=== PATIENT | female | born 1935 | race African-American/Black ===

== ENCOUNTER 2018-09-20 14:28 | Emergency (ER) | payer MEDICARE, MEDICAID ==
[~2018-09-20] VITALS: Ht 170.2 cm; Wt 68.0 kg
[2018-09-20] MEDS ORDERED: KETOROLAC 30MG/ML VIAL IM ONE (15:15)
[2018-09-20] MEDS ORDERED: MORPHINE SULFATE 10 MG/ML CPJ IM ONE (15:15)
[2018-09-20 20:03] VITALS: BP 128/73
== END 2018-09-20 20:03 | disposition home or self-care (01) ==
LOC: ER 15:31
DX: M54.5 Low back pain (principal); G89.29 Other chronic pain
CPT/HCPCS: 72131; 96372; 99284; J1885; J2270

== ENCOUNTER 2021-02-17 16:49 | Inpatient (IN) | payer MEDICARE, MEDICAID ==
[~2021-02-17] VITALS: Ht 165.1 cm; Wt 61.3 kg
[~2021-02-17 16:49] MED LIST: ATOR20TA PO; CHOL100044 GT; CHOL100062 PO; HYDR2TAB7 PO; LATA2.5D14 OP; MAGN250T10 PO
[2021-02-17] MEDS ORDERED: ASPIRIN 81MG TABLET PO ONE (17:15)
[2021-02-17 17:20] LABS: BASOPHILS % 0.6 % (0.0-2.0); EOSINOPHILS % 0.8 % (0.0-5.0); HEMATOCRIT. 40.6 % (36.0-48.0); HEMOGLOBIN. 13.8 g/dL (12.0-16.0); LYMPHOCYTES % 60.3 % (20.0-50.0); MEAN CORPUSCULAR HEMOGLOBIN 31.2 pg (28.0-32.0); MEAN CORPUSCULAR VOLUME 91.9 fL (81.0-99.0); MEAN PLATELET VOLUME 8.3 fl (7.4-10.4); MONOCYTES % 9.6 % (2.0-8.0); NEUTROPHILS % 28.7 % (40.0-76.0); PLATELET 148 x1000/uL (130-400); RED BLOOD CELL COUNT 4.41 mill/uL (4.2-5.4); RED CELL DISTRIBUTION WIDTH 14.6 % (11.6-14.6)
[2021-02-17 17:25] LABS: CHLORIDE 106 mEq/L (98-107)
[2021-02-17] MEDS ORDERED: MAGNESIUM/ALUMINUM HYDROXIDE/SIMETHICONE 30ML UDC PO PRN (20:00)
[2021-02-17] MEDS ORDERED: CLONIDINE 0.1MG TABLET PO PRN (20:00)
[2021-02-17] MEDS ORDERED: ENOXAPARIN 40MG/0.4ML SYR SUBCUT SCH (20:00)
[2021-02-17] MEDS ORDERED: ONDANSETRON HCL 4MG/2ML INJ IV PRN (20:00)
[2021-02-17] MEDS ORDERED: GUAIFENESIN 200MG/10ML SUGAR FREE UDC PO PRN (20:00)
[2021-02-17] MEDS ORDERED: ACETAMINOPHEN 325MG TABLET PO PRN (20:00)
[2021-02-17] MEDS ORDERED: TRAMADOL 50MG TABLET PO PRN (20:30)
[2021-02-17] MEDS ORDERED: NITROGLYCERIN 0.4MG TABLET SL SL PRN (20:30)
[2021-02-17] MEDS ORDERED: ZOLPIDEM TARTRATE 5MG TABLET PO PRN (20:30)
[2021-02-17 20:43] LABS: T4 FREE 0.89 ng/dL (0.76-1.46)
[2021-02-17 20:54] LABS: FOLIC ACID (FOLATE) SERUM 15.3 ng/mL (>5.38)
[2021-02-17 21:00] LABS: *AMPHETAMINES SCREEN URINE NEGATIVE (NEGATIVE); *BARBITURATES SCREEN URINE NEGATIVE (NEGATIVE); *BENZODIAZEPINES SCREEN URINE NEGATIVE (NEGATIVE); *COCAINE SCREEN URINE NEGATIVE (NEGATIVE); METHADONE URINE SCREEN NEGATIVE (NEGATIVE)
[2021-02-17] MEDS ORDERED: FAMOTIDINE 20MG TABLET PO SCH (21:00)
[2021-02-17 21:01] LABS: CANNABINOID URINE SCREEN NEGATIVE (NEGATIVE); OPIATES URINE SCREEN PRESUMTIVE POSITIVE (NEGATIVE); PHENCYCLIDINE URINE SCREEN NEGATIVE (NEGATIVE)
[2021-02-17] MEDS: ENOXAPARIN 30MG/0.3ML SYR SUBCUT SCH (21:06)
[2021-02-17] MEDS: METOPROLOL TARTRATE 25MG TABLET PO SCH (21:07)
[2021-02-17] MEDS: LISINOPRIL 20MG TABLET PO SCH (21:07)
[2021-02-17] MEDS: FAMOTIDINE 20MG TABLET PO SCH (21:07)
[2021-02-17] MEDS: ASCORBIC ACID 500 MG TABLET PO SCH (21:07)
[2021-02-17 22:30] VITALS: BP 160/90
[2021-02-17] MEDS ORDERED: LISI20TA31 MT (23:34)
[2021-02-18] VITALS: BP 160/70
[2021-02-18 01:03] LABS: CREATINE KINASE 362 IU/L (26-192)
[2021-02-18 01:04] LABS: CREATINE KINASE MB FRACTION 3.2 ng/mL (0.5-3.6)
[2021-02-18 06:25] LABS: BASOPHILS % 0.9 % (0.0-2.0); EOSINOPHILS % 1.3 % (0.0-5.0); HEMOGLOBIN. 11.9 g/dL (12.0-16.0); MEAN CORPUSCULAR HEMOGLOBIN 30.6 pg (28.0-32.0); MEAN CORPUSCULAR VOLUME 92.5 fL (81.0-99.0); MONOCYTES % 12.6 % (2.0-8.0); NEUTROPHILS % 39.2 % (40.0-76.0); PLATELET 129 x1000/uL (130-400); RED BLOOD CELL COUNT 3.89 mill/uL (4.2-5.4); RED CELL DISTRIBUTION WIDTH 14.7 % (11.6-14.6)
[2021-02-18 06:40] LABS: CHLORIDE 113 mEq/L (98-107)
[2021-02-18 06:47] LABS: PHOSPHORUS 2.9 mg/dL (2.5-4.9)
[2021-02-18 06:49] LABS: CREATINE KINASE 282 IU/L (26-192)
[2021-02-18 06:56] LABS: CREATINE KINASE MB FRACTION 2.8 ng/mL (0.5-3.6)
[2021-02-18 08:39] VITALS: BP 152/76
[2021-02-18] MEDS: METOPROLOL TARTRATE 25MG TABLET PO SCH ×2 (09:00→22:25)
[2021-02-18] MEDS: ASPIRIN 325MG EC TABLET PO SCH (09:20)
[2021-02-18] MEDS: ZINC SULFATE 220 MG ( 50 ) CAPSULE PO SCH (09:20)
[2021-02-18] MEDS: CHOLECALCIFEROL (D3) 1000 UNIT TABLET PO SCH (09:20)
[2021-02-18] MEDS: LISINOPRIL 20MG TABLET PO SCH ×2 (09:21→22:27)
[2021-02-18] MEDS: ASCORBIC ACID 500 MG TABLET PO SCH ×2 (10:49→22:27)
[2021-02-18 12:06] VITALS: BP 157/82
[2021-02-18 16:38] VITALS: BP 149/80
[2021-02-18 20:00] VITALS: BP 152/61
[2021-02-18] MEDS: ENOXAPARIN 30MG/0.3ML SYR SUBCUT SCH (22:26)
[2021-02-18] MEDS: FAMOTIDINE 20MG TABLET PO SCH (22:26)
[2021-02-19 00:32] VITALS: BP 151/66
[2021-02-19] MEDS: ACETAMINOPHEN 325MG TABLET PO PRN ×2 (01:51→05:20)
[2021-02-19 04:00] VITALS: BP 156/76
[2021-02-19 08:00] VITALS: BP 141/79
[2021-02-19] MEDS: CHOLECALCIFEROL (D3) 1000 UNIT TABLET PO SCH (08:47)
[2021-02-19] MEDS: ASCORBIC ACID 500 MG TABLET PO SCH ×2 (08:47→21:43)
[2021-02-19] MEDS: ZINC SULFATE 220 MG ( 50 ) CAPSULE PO SCH (08:47)
[2021-02-19] MEDS: METOPROLOL TARTRATE 25MG TABLET PO SCH ×2 (08:47→21:00)
[2021-02-19] MEDS: LISINOPRIL 20MG TABLET PO SCH ×2 (08:47→21:43)
[2021-02-19] MEDS: ASPIRIN 325MG EC TABLET PO SCH (08:47)
[2021-02-19 12:00] VITALS: BP 146/70
[2021-02-19] MEDS: DEXAMETHASONE 4MG/ML 1ML VIAL IV SCH ×2 (12:00→17:33)
[2021-02-19 12:32] LABS: INR 1.1; PROTHROMBIN TIME 11.4 sec (9.6-11.0)
[2021-02-19 16:00] VITALS: BP 151/75
[2021-02-19 20:00] VITALS: BP 162/78
[2021-02-19] MEDS: ENOXAPARIN 30MG/0.3ML SYR SUBCUT SCH (21:42)
[2021-02-19] MEDS: FAMOTIDINE 20MG TABLET PO SCH (21:43)
[2021-02-20] VITALS: BP 128/59
[2021-02-20] MEDS: DEXAMETHASONE 4MG/ML 1ML VIAL IV SCH ×3 (01:44→14:07)
[2021-02-20 04:00] VITALS: BP 135/62
[2021-02-20 08:00] VITALS: BP 140/62
[2021-02-20] MEDS: METOPROLOL TARTRATE 25MG TABLET PO SCH ×2 (09:35→22:16)
[2021-02-20] MEDS: ASCORBIC ACID 500 MG TABLET PO SCH ×2 (09:36→22:15)
[2021-02-20] MEDS: ZINC SULFATE 220 MG ( 50 ) CAPSULE PO SCH (09:36)
[2021-02-20] MEDS: CHOLECALCIFEROL (D3) 1000 UNIT TABLET PO SCH (09:36)
[2021-02-20] MEDS: LISINOPRIL 20MG TABLET PO SCH ×2 (09:37→22:16)
[2021-02-20 12:00] VITALS: BP 137/61
[2021-02-20 16:00] VITALS: BP 142/64
[2021-02-20 20:00] VITALS: BP 139/68
[2021-02-20] MEDS: ENOXAPARIN 30MG/0.3ML SYR SUBCUT SCH (22:15)
[2021-02-20] MEDS: FAMOTIDINE 20MG TABLET PO SCH (22:16)
[2021-02-21] VITALS (7 sets, daily range): BP systolic 134–157; BP diastolic 64–75
[2021-02-21] MEDS: DEXAMETHASONE 4MG/ML 1ML VIAL IV SCH ×3 (00:58→12:50)
[2021-02-21] MEDS: METOPROLOL TARTRATE 25MG TABLET PO SCH ×2 (08:44→21:00)
[2021-02-21] MEDS: ASCORBIC ACID 500 MG TABLET PO SCH ×2 (09:42→23:31)
[2021-02-21] MEDS: LISINOPRIL 20MG TABLET PO SCH ×2 (09:42→23:31)
[2021-02-21] MEDS: CHOLECALCIFEROL (D3) 1000 UNIT TABLET PO SCH (09:42)
[2021-02-21] MEDS: ZINC SULFATE 220 MG ( 50 ) CAPSULE PO SCH (09:54)
[2021-02-21] MEDS: ENOXAPARIN 30MG/0.3ML SYR SUBCUT SCH (22:36)
[2021-02-21] MEDS: FAMOTIDINE 20MG TABLET PO SCH (23:31)
[2021-02-22] VITALS: BP 147/72
[2021-02-22 04:00] VITALS: BP 142/68
[2021-02-22] MEDS: ZINC SULFATE 220 MG ( 50 ) CAPSULE PO SCH (08:30)
[2021-02-22] MEDS: CHOLECALCIFEROL (D3) 1000 UNIT TABLET PO SCH (08:30)
[2021-02-22] MEDS: METOPROLOL TARTRATE 25MG TABLET PO SCH (08:31)
[2021-02-22] MEDS: ASCORBIC ACID 500 MG TABLET PO SCH (08:31)
[2021-02-22] MEDS: LISINOPRIL 20MG TABLET PO SCH (08:31)
[2021-02-22 12:00] VITALS: BP 150/83
[2021-02-22 12:23] VITALS: BP 150/83
== END 2021-02-22 14:30 | disposition home health service (06) | DRG 205 ==
LOC: ER 16:49 → EDBEDREQTM 18:58 → 8WST 19:27 → EDBEDREQTM 19:36 → EDBEDREQ 19:36 → SUPCPDRO 19:52 → ENRESERV 21:24
PROVIDERS: ADMIT Internal Medicine; ATTEND Internal Medicine
DX: M94.0 Chondrocostal junction syndrome [Tietze] (principal); I50.33 Acute on chronic diastolic (congestive) heart failure; G95.89 Other specified diseases of spinal cord; G95.20 Unspecified cord compression; E78.00 Pure hypercholesterolemia, unspecified; I11.0 Hypertensive heart disease with heart failure; M48.02 Spinal stenosis, cervical region; M48.061 Spinal stenosis, lumbar region without neurogenic claudication; Z79.899 Other long term (current) drug therapy; Z88.6 Allergy status to analgesic agent; Z88.0 Allergy status to penicillin
CPT/HCPCS: 36415; 71045; 72141; 72146; 72148; 80053; 80061; 80305; 82550; 82553; 82607; 82746; 83036; 83540; 83550; 83735; 83880; 84100; 84439; 84443; 84484; 85025; 93005; 93306; 93970; 97161; 97166; 99291; C1893; J1100; J1650

== ENCOUNTER 2022-08-09 08:45 | Emergency (ER) | payer MEDICARE, MEDICAID ==
[~2022-08-09] VITALS: Ht 167.6 cm; Wt 77.0 kg
[~2022-08-09 08:45] MED LIST changes: +LISI20TA31 MT
[2022-08-09 11:17] LABS: CLARITY URINE CLEAR (CLEAR); COLOR URINE YELLOW (YELLOW); KETONES URINE NEGATIVE (NEGATIVE); LEUKOCYTE ESTERASE URINE 2+ (NEGATIVE); NITRITE URINE NEGATIVE (NEGATIVE); OCCULT BLOOD URINE NEGATIVE (NEGATIVE); PH URINE 6.5 (4.5-8.0); PROTEIN URINE NEGATIVE (NEGATIVE); SPECIFIC GRAVITY URINE 1.015 (1.005-1.030); UROBILINOGEN URINE 0.2 E.U./dL (0.2-1.0)
[2022-08-09] MEDS ORDERED: TOPUD PO (11:38)
[2022-08-09] MEDS ORDERED: NITR-82 PO (11:38)
[2022-08-09 11:53] VITALS: BP 152/63
== END 2022-08-09 12:16 | disposition home or self-care (01) ==
LOC: ER 08:45
DX: N39.0 Urinary tract infection, site not specified (principal); I10 Essential (primary) hypertension; E78.00 Pure hypercholesterolemia, unspecified
CPT/HCPCS: 81003; 99283

== ENCOUNTER 2024-09-28 05:37 | Emergency (ER) | payer MEDICARE, MEDICAID ==
[~2024-09-28] VITALS: Ht 162.6 cm; Wt 55.0 kg
[~2024-09-28 05:37] MED LIST changes: +NITR-82 PO; +TOPUD PO
[2024-09-28 05:42] VITALS: O2SAT 98
[2024-09-28 06:17] LABS: BASOPHILS % 0.6 % (0.0-2.0); EOSINOPHILS % 0.8 % (0.0-5.0); HEMATOCRIT. 39.5 % (36.0-48.0); HEMOGLOBIN. 13.2 g/dL (12.0-16.0); LYMPHOCYTES % 42.2 % (20.0-50.0); MEAN CORPUSCULAR HEMOGLOBIN 31.6 pg (28.0-32.0); MEAN CORPUSCULAR HGB CONC 33.5 g/dL (31.0-37.0); MEAN CORPUSCULAR VOLUME 94.5 fL (81.0-99.0); MEAN PLATELET VOLUME 8.4 fl (7.4-10.4); MONOCYTES % 10.5 % (2.0-8.0); NEUTROPHILS % 45.9 % (40.0-76.0); PLATELET 172 x1000/uL (130-400); RED BLOOD CELL COUNT 4.18 mill/uL (4.2-5.4); RED CELL DISTRIBUTION WIDTH 15.2 % (11.6-14.6); WHITE BLOOD COUNT 3.4 x1000/uL (4.5-11.0)
[2024-09-28 06:19] LABS: CHLORIDE 104 mEq/L (98-107); POTASSIUM 4.1 mEq/L (3.5-5.1); SODIUM 139 mEq/L (136-145)
[2024-09-28 06:20] LABS: CARBON DIOXIDE 28 mEq/L (21-32)
[2024-09-28 06:21] LABS: CALCIUM 9.8 mg/dL (8.7-10.4)
[2024-09-28 06:25] LABS: CREATININE 0.8 mg/dL (0.6-1.0); GLUCOSE 111 mg/dL (70-105); UREA NITROGEN BLOOD 10 mg/dL (9-23)
[2024-09-28 06:28] LABS: TROPONIN I HIGH SENSITIVITY 10 ng/L (3.0-34)
[2024-09-28] MEDS ORDERED: LISINOPRIL 20MG TABLET PO ONE (09:30)
[2024-09-28] MEDS: LISINOPRIL 10MG TABLET PO NR (10:34)
[2024-09-28 10:35] VITALS: TEMP 36.72516
[2024-09-28 10:58] VITALS: BP 176/82; PULSE 72; RESP 16; O2SAT 100
[2024-09-28] MEDS ORDERED: ACETAMINOPHEN 325MG TABLET PO PRN (19:15)
[2024-09-28] MEDS ORDERED: MORPHINE SULFATE 2 MG/ML INJ (NOT FOR IM USE) IV PRN (19:15)
[2024-09-28] MEDS ORDERED: HYDROCODONE/ACETAMINOPHEN 5/325MG TABLET PO PRN (19:15)
[2024-09-28] MEDS ORDERED: ONDANSETRON HCL 4MG/2ML INJ IV PRN (19:15)
[2024-09-28] MEDS ORDERED: IPRATROPIUM/ALBUTEROL 0.5-3(2.5)MG/3ML NEB NEB PRN (19:35)
[2024-09-28] MEDS ORDERED: LEVOFLOXACIN 500MG PREMIX 100 ML IV SCH (20:00)
[2024-09-29] MEDS ORDERED: ENOXAPARIN 40MG/0.4ML SYR SUBCUT SCH (09:00)
== END 2024-09-28 10:58 | disposition short-term general hospital (02) ==
LOC: ER 05:37 → EDBEDREQ 08:55 → EDBEDREQTM 08:55 → ER 10:58
DX: R60.0 Localized edema (principal); E78.00 Pure hypercholesterolemia, unspecified; I10 Essential (primary) hypertension; J44.9 Chronic obstructive pulmonary disease, unspecified; Z79.899 Other long term (current) drug therapy; Z88.0 Allergy status to penicillin; Z88.5 Allergy status to narcotic agent
CPT/HCPCS: 36415; 71045; 80048; 83880; 84484; 85025; 93005; 99285